=== PATIENT | female | born 1965 | race Caucasian/White ===

== ENCOUNTER 2016-04-27 09:37 | Emergency (ER) ==
--- NOTE | 2016-04-27 10:22 | PROVIDER DOCUMENTATION ---
[facility] [place] General - General Source: patient, family - History of Present Illness-EE General EE Location: reports: ear (R), throat Quality of Pain: reports: aching Severity: reports: moderate Onset/Duration: reports: 2 days ago Timing: reports: still present Prearrival Treatment: Initiated over the counter meds Locality of Occurance: Home Similar Symptoms Previously?: No Recently seen or treated by another doctor?: No <Kate Cummings - Last Filed: 04/27/16 10:54> <Wendy Silva - Last Filed: 04/27/16 11:00> - General Chief Complaint: Earache Stated Complaint: SORE THROAT/EARACHE Time Seen by Provider: 04/27/16 10:22 Allergies/Adverse Reactions: Patient Allergies Allergy/AdvReac Type Severity Reaction Status Date / Time Penicillins Allergy SWELLING Verified 04/27/16 09:50 sulfamethoxazole Allergy HIVES Verified 04/27/16 09:50 [From Bactrim] trimethoprim [From Bactrim] Allergy HIVES Verified 04/27/16 09:50 Home Medications: Home Medication List Medication Instructions Recorded Confirmed Last Taken Type Clindamycin [Cleocin] 150 mg PO Q6HR #28 capsule 04/27/16 Unknown Rx Esomeprazole [Nexium] 40 mg PO DAILY 04/27/16 04/27/16 Unknown History Methylprednisolone [Medrol Dosepak] 4 mg PO DIRECTED #1 package 04/27/16 Unknown Rx Phenytoin [Dilantin] 200 mg PO BID 04/27/16 04/27/16 Unknown History - History of Present Illness-[facility] [place] General Nature of Presenting Problem: Reports to er with cc of right ear and right throat pain x 2 days with fever past two days resolved today. Been taking Nyquil and tylenol no relief. (Kate Cummings) Review of Systems - Adult - REVIEW OF SYSTEMS - ADULT Constitutional: reports: fever. denies: chills, fatique, weight loss Eyes: reports: no symptoms reported Ears, Nose, Mouth & Throat: reports: ear pain, throat pain. denies: sinus problem, mouth swelling, throat swelling Cardiovascular: denies: chest pain, irregular heart rate, orthopnea Respiratory: reports: no symptoms reported Gastrointestinal: reports: no symptoms reported Genitourinary: reports: no symptoms reported Musculoskeletal: reports: no symptoms reported Integumentary: reports: no symptoms reported Neurological: reports: no symptoms reported Psychiatric: reports: no symptoms reported Endocrine: reports: no symptoms reported Hematologic/Lymphatic: reports: no symptoms reported Allergic/Immunologic: reports: no symptoms reported All Other Systems: Reviewed and Negative <Kate Cummings - Last Filed: 04/27/16 10:54> Past History - Adult - PAST MEDICAL HISTORY-ADULT Review of Records: reports: Nursing Assessment Review Major Childhood Illnesses: reports: denies history Cardiovascular: reports: HTN Neurological: reports: Seizures/Epilepsy - IMMUNIZATION STATUS Childhood Immunizations: See Nurse Assessment Flu Vaccine: See Nurse Assessment - SOCIAL HISTORY Smoking: cigarettes, greater than 1 pack/day Provider spent 3-5 mins advising pt. on dangers of tobacco.: Discussed manners to quit use, and f/u contacts for add'l counseling. Substance Use: none/never <Kate Cummings - Last Filed: 04/27/16 10:54> Physical Exam- EENT - Physical Exam EENT Initial Vital Signs Reviewed: Yes General Appearance: appears well, no apparent distress Eye Exam: bilateral eye: normal inspection, PERRL, EOMI Ear Exam: bilateral ear: auricle normal, canal normal, TM normal Nasal Exam: sinus tenderness Throat Exam: tonsillar exudate Neck: full range of motion, lymphadenopathy Respiratory: chest non-tender, lungs clear, normal breath sounds Cardiovascular: regular rate, rhythm, no edema Extremity: normal gait, normal inspection Integumentary: normal color, normal turgor, warm/dry Neurologic: grossly normal, no motor/sensory deficits Psych/Mental Status: normal thought content, normal thought process <Wendy Silva - Last Filed: 04/27/16 11:00> Progress <Kate Cummings - Last Filed: 04/27/16 10:54> <Wendy Silva - Last Filed: 04/27/16 11:00> - PLAN OF CARE/RESULTS Progress/Plan/Lab Results: Vital Signs - 24 hr 04/27/16 09:43 Temperature 98.3 F Pulse Rate 85 Respiratory 18 Rate Blood Pressure 140/98 O2 Sat by Pulse 98 Oximetry (Kate Cummings) explained her right ear was not infected but had referred pain from strep throat infection. Pt voiced understanding. Vital Signs Temp Pulse Resp BP Pulse Ox 04/27/16 09:43 98.3 F 85 18 140/98 98 Penicillins Allergy (Verified 04/27/16 09:50) SWELLING sulfamethoxazole [From Bactrim] Allergy (Verified 04/27/16 09:50) HIVES trimethoprim [From Bactrim] Allergy (Verified 04/27/16 09:50) HIVES Esomeprazole [Nexium] 40 mg PO DAILY 04/27/16 Phenytoin [Dilantin] 200 mg PO BID 04/27/16 (Wendy Silva) Departure <Kate Cummings - Last Filed: 04/27/16 10:54> - Departure Time of Disposition Order: 10:58 Certified Medical Emergency: Emergent <Wendy Silva - Last Filed: 04/27/16 11:00> - Departure DIAGNOSIS: Strep sore throat, Lymphadenopathy of right cervical region Disposition: HOME 01 Condition: Good Additional Instructions: ED Follow Up Instructions: You have been treated by a care provider in the Emergency Department. These instructions are being provided to you so you can have an understanding of how to care for yourself upon discharge. Upon discharge from the Emergency Department, you are responsible for making arrangements for follow-up care by a physician of your choice. Take all prescribed medications as directed. Return to the Emergency Department immediately for any new or worsening symptoms. You may call the Physician Referral phone number at [phone] to obtain a list of Physicians who are taking new patients. Prescriptions: Clindamycin [Cleocin] 150 mg PO Q6HR #28 capsule Methylprednisolone [Medrol Dosepak] 4 mg PO DIRECTED #1 package Referrals: None,PCP [Primary Care Provider] - Terrance Augustine MD [STAFF PHYSICIAN] - Attestation - Scribe Verification/Attestation Scribe:: Kate Cummings Acting as Scribe for:: Wendy Silva Scribe documention review:: This chart was documented by a scribe and accurately reflects the service the provider performed and the decisions made by the provider. <Kate Cummings - Last Filed: 04/27/16 10:54> - Physician/ ANNEMARIE Attestation Patient care was provided by Advanced Practice Provider:: Yes Advanced Practice Provider:: Wendy Silva Advanced Practice Provider documentation review:: The Mid-level provider documentation, treatment plan and medical decision making was reviewed by the physician who agrees with all treatment and medical decision making by the MLP. <Wendy Silva - Last Filed: 04/27/16 11:00> Physician Attestation
[2016-04-27 11:09] VITALS: BP 158/95
== END 2016-04-27 11:14 | disposition home or self-care (01) ==
LOC: P.ED 09:37
DX: J02.0 Streptococcal pharyngitis (principal); R59.0 Localized enlarged lymph nodes; H92.01 Otalgia, right ear; R50.9 Fever, unspecified; J34.89 Other specified disorders of nose and nasal sinuses; I10 Essential (primary) hypertension; F17.210 Nicotine dependence, cigarettes, uncomplicated; Z79.899 Other long term (current) drug therapy; Z71.6 Tobacco abuse counseling
CPT/HCPCS: 99282